=== PATIENT | male | born 1970 | race African-American/Black ===

== ENCOUNTER 2023-01-17 17:51 | Emergency (ER) | payer BC, SELFPAY ==
[2023-01-17 18:03] VITALS: BP 170/76; PULSE 78; RESP 17; TEMP 36.3; O2SAT 100
[2023-01-17 19:56] VITALS: BP 154/98; PULSE 63; RESP 18; TEMP 36.7; O2SAT 99
[2023-01-17] MEDS: DIPHENHYDRAMINE 1%/ZINC 0.1% CREAM 30 GM TUBE 1 APPLIC TOPICAL (20:33)
--- NOTE | 2023-01-17 20:56 | ED.GENADULT ---
HPI - General Adult General Chief complaint: Wound/Laceration Stated complaint: insect bite Time Seen by Provider: 01/17/23 19:49 History of Present Illness HPI narrative: Patient is a 52-year-old male who presents ER with an insect bite. He was at work when he felt something bite him on his right hernandes. He developed redness and swelling. It did not improve with ice packs. No chest pain or chest pressure. No difficulty breathing or swallowing. No additional swelling. Reports its intensely pruritic. Related Data Home Medications Medication Instructions Recorded Confirmed amlodipine 10 mg tablet 10 mg PO DAILY 05/18/22 06/21/22 losartan 100 mg tablet 100 mg PO DAILY 05/18/22 06/21/22 Allergies Allergy/AdvReac Type Severity Reaction Status Date / Time No Known Allergies Allergy Verified 01/17/23 20:05 Review of Systems Constitutional: Constitutional: Denies chills, Denies fatigue and Denies fever(s) Respiratory: Respiratory: Denies cough, Denies dyspnea and Denies wheezing Integumentary/Breasts: Skin/Breast: Reports pruritus, Reports erythema, Reports rash and Denies skin ulcer [facility] Past Medical History Medical History (Updated 01/17/23 @ 21:45 by Mateusz Gordon MD) Hypertension Social History Social History Smoking status: Never smoker Substance use type: does not use Living arrangements: with family Spiritual care concerns: No Exam Narrative: GENERAL: Well-appearing, orbitally obese, and in no acute distress. HEAD: Normocephalic, atraumatic. ENT: Mucous membranes moist. CHEST: Clear to auscultation. No respiratory distress. HEART: Regular rate and rhythm. Normal peripheral pulses. EXTREMITIES: Normal range of motion. Negative Homans' sign. SKIN: Warm, dry, swelling right anterior hernandes with erythema. Small defect of the skin where there is a bite/sting. NEURO: Alert and oriented x3. PSYCH: Normal mood and affect. Course Course Emergency Course: Patient given topical Benadryl cream for itching which has helped. Discussed discharging home with oral Benadryl and then topical hydrocortisone. Patient would like a work note Vital Signs Vital signs: Vital Signs Temperature 97.4 F L 01/17/23 18:03 Pulse Rate 78 01/17/23 18:03 Respiratory Rate 17 01/17/23 18:03 Blood Pressure 170/76 H 01/17/23 18:03 Pulse Oximetry 100 01/17/23 18:03 Oxygen Delivery Room Air 01/17/23 18:03 Temperature 98.0 F 01/17/23 19:56 Pulse Rate 62 01/17/23 21:05 Respiratory Rate 16 01/17/23 21:05 Blood Pressure 157/102 H 01/17/23 21:05 Pulse Oximetry 100 01/17/23 21:05 Oxygen Delivery Room Air 01/17/23 18:03 Medical Decision Making Vital Signs Vital Signs: Vital Signs Temperature 97.4 F L 01/17/23 18:03 Pulse Rate 78 01/17/23 18:03 Respiratory Rate 17 01/17/23 18:03 Blood Pressure 170/76 H 01/17/23 18:03 Pulse Oximetry 100 01/17/23 18:03 Oxygen Delivery Room Air 01/17/23 18:03 Temperature 98.0 F 01/17/23 19:56 Pulse Rate 62 01/17/23 21:05 Respiratory Rate 16 01/17/23 21:05 Blood Pressure 157/102 H 01/17/23 21:05 Pulse Oximetry 100 01/17/23 21:05 Oxygen Delivery Room Air 01/17/23 18:03 Discharge Plan Discharge Clinical Impression: Insect bite of leg Patient Disposition: Home, Self-Care Condition: Stable Instructions: Insect Bite or Sting (ED) Additional Instructions: You are having a reaction to a bite or sting. Take oral Benadryl and apply topical cortisone. Return the ER if you have fever over 100.4 ?F, you cannot breathe, cannot swallow, you have additional concerns. Prescriptions: No Action amlodipine 10 mg tablet 10 mg PO DAILY losartan 100 mg tablet 100 mg PO DAILY sodium,potassium,mag sulfates [Suprep Bowel Prep Kit] 17.5-3.13-1.6 gram recon soln See Rx Instructions PO .COMPLEX Qty: 354 0RF Rx Instructions: Take as directed. Follow-up/Referr
[2023-01-17 21:05] VITALS: BP 157/102; PULSE 62; RESP 16; O2SAT 100
== END 2023-01-17 21:06 | disposition home or self-care (01) ==
PROVIDERS: Emergency Provider Emergency Medicine; PCP Family Medicine
DX: S80.861A Insect bite (nonvenomous), right lower leg, initial encounter (principal); I10 Essential (primary) hypertension; W57.XXXA Bitten or stung by nonvenomous insect and other nonvenomous arthropods, initial encounter
CPT/HCPCS: 99282; A9270

== ENCOUNTER 2023-07-08 00:31 | Day surgery (SDC) | payer BC, SELFPAY ==
[2023-04-25 10:52] VITALS: BMI 42.7
[2023-05-31 09:56] VITALS: BMI 42.8
--- NOTE | 2023-07-04 09:46 | SUR.PREOP ---
Patient called regarding upcoming procedure. Reviewed preop instructions, new appointment times, and procedure prep.
--- NOTE | 2023-07-05 09:56 | SUR.PREOP ---
Patient called regarding upcoming procedure. Reviewed preop instructions, appointment times, and procedure prep.
[2023-07-08 06:20] VITALS: BP 181/96; PULSE 68; RESP 18; TEMP 36.2; O2SAT 100
[2023-07-08] MEDS: LACTATED RINGERS 1,000 ML 150 ML IV CONT (06:26)
--- NOTE | 2023-07-08 07:26 | WPDANESEPPF ---
Anes - Initial Pre Proc Eval Procedure: Operation Date: 07/08/23 07:30 Proposed Procedures p Colonoscopy - Jai Solitario MD Date/Time: 07/08/23 07:26 Surgeon: Jai Solitario MD Pre Op Diagnosis: personal hx of colon polyps Patient Data Age: 53 Gender: M Height: 1.78 m Weight: 123.4 kg Last Vital Signs Temp 97.1 F L 07/08/23 06:20 Pulse 68 07/08/23 06:20 Resp 18 07/08/23 06:20 BP 181/96 H 07/08/23 06:20 Pulse Ox 100 07/08/23 06:20 O2 Del Method Room Air 07/08/23 06:20 Allergies Allergy/AdvReac Type Severity Reaction Status Date / Time No Known Allergies Allergy Verified 07/08/23 06:19 Home Medications Medication Instructions Recorded Confirmed Type sodium,potassium,mag sulfates 17.5 See Rx Instructions PO .COMPLEX 04/18/22 04/25/23 Rx gram-3.13 gram-1.6 gram oral soln #354 mL (Suprep Bowel Prep Kit) amlodipine 10 mg tablet 10 mg PO DAILY 05/18/22 04/25/23 History losartan 100 mg tablet 100 mg PO DAILY 05/18/22 04/25/23 History sodium,potassium,mag sulfates 17.5 See Rx Instructions PO .COMPLEX 03/27/23 04/25/23 Rx gram-3.13 gram-1.6 gram oral soln #354 mL (Suprep Bowel Prep Kit) Patient hx anesthesia problems: none Family hx anesthesia problems: none Results Review: All pre-operative results and documents have been reviewed as part of the pre-operative evaluation. [facility] Past Medical History Medical History (Updated 01/18/23 @ 00:10 by Background Daemon) Hypertension Social History Social History Smoking status: Never smoker Alcohol intake: never Substance use: never Substance use type: does not use Living arrangements: with family Spiritual care concerns: No Anes - Eval Final PreProcedure Day of Procedure 07/08/23 07:26 Patient weight: morbidly obese Heart: regular rate and rhythm Lungs: clear to auscultation Airway: Mallampati scale class II Neurological: alert and oriented Last oral intake: >/= 8 hours ASA classification: III Emergent: no Anesthetic plan: proceed Anesthesia type and monitoring: general GIVS and standard monitoring Results Review: All pre-operative results and documents have been reviewed as part of the pre-operative evaluation. Informed Consent: The patient's anesthetic plan and its attendant risks and benefits were discussed with the patient/family/POA. Questions were solicited and answers provided to the satisfaction of the patient/family/POA.
--- NOTE | 2023-07-08 07:32 | PM.HPGS ---
History of Present Illness History of Present Illness Consent: Risks, benefits, and alternatives have been discussed and questions answered. Patient agrees to proceed with procedure. Chief complaint: personal hx of colon polyps Narrative: Ariel Jasso Sr. is a 53 year old male with colon polyps 5 years ago Review of Systems Constitutional: Constitutional: Denies headache(s) and Denies weakness Eyes: Eyes: Denies blurry vision ENT: Reports Normal hearing present, Denies headache(s) and Denies neck pain Cardiovascular: Cardiovascular: Denies chest pain and Denies dyspnea Respiratory: Respiratory: Denies dyspnea Gastrointestinal: Gastrointestinal: Reports no additional gastrointestinal complaints Genitourinary: Genitourinary: Denies dysuria Musculoskeletal: Musculoskeletal: Denies neck pain Integumentary/Breasts: Skin/Breast: Denies dry skin Neurologic: Reports Normal hearing present, Denies headache(s) and Denies weakness Psychiatric: Psychiatric: Denies anxiety Endocrine: Endocrine: Denies change in body appearance Hematologic/Lymphatic: Hematologic/Lymphatic: Denies easy bleeding Allergic/Immunologic: Allergic/Immunologic: Denies urticaria [facility] Past Medical History Medical History (Updated 07/08/23 @ 07:32 by Jai Solitario MD) Colon polyp Hypertension Social History Social History Smoking status: Never smoker Alcohol intake: never Substance use: never Substance use type: does not use Living arrangements: with family Spiritual care concerns: No Meds Home Medications and Allergies Home Medications Medication Instructions Recorded Confirmed Type sodium,potassium,mag sulfates 17.5 See Rx Instructions PO .COMPLEX 04/18/22 04/25/23 Rx gram-3.13 gram-1.6 gram oral soln #354 mL (Suprep Bowel Prep Kit) amlodipine 10 mg tablet 10 mg PO DAILY 05/18/22 04/25/23 History losartan 100 mg tablet 100 mg PO DAILY 05/18/22 04/25/23 History sodium,potassium,mag sulfates 17.5 See Rx Instructions PO .COMPLEX 03/27/23 04/25/23 Rx gram-3.13 gram-1.6 gram oral soln #354 mL (Suprep Bowel Prep Kit) Allergies Allergy/AdvReac Type Severity Reaction Status Date / Time No Known Allergies Allergy Verified 07/08/23 06:19 Vital Signs Vital Signs - 24 hr 07/08/23 06:20 Temperature 97.1 F L Pulse Rate 68 Respiratory Rate 18 Blood Pressure 181/96 H Pulse Oximetry 100 Oxygen Delivery Room Air Exam Const: General: comfortable and no acute distress HENMT: Face/Nose/Sinus: Normal nares present Eyes: General: appearance normal, both eyes and all related structures Neck: Neck: no JVD Resp: Auscultation: clear to auscultation bilaterally Cardio: Rate: regular rate Rhythm: regular rhythm GI: Inspection: non-distended GI Palp: Yes Soft to palpation Skin: General skin exam: normal color Neuro: General: gait normal Speech: normal speech Extrem: General: normal to inspection Psych: Mental Status: mental status grossly normal Assessment and Plan Assessment and plan (1) Colon polyp: Code(s): K63.5 - Polyp of colon Status: Acute Assessment and Plan: colonoscopy
[2023-07-08 08:19] VITALS: BP 185/119; PULSE 80; RESP 18; O2SAT 96
[2023-07-08 08:29] VITALS: BP 179/107; PULSE 73; RESP 18; O2SAT 96
[2023-07-08 08:39] VITALS: BP 185/103; PULSE 74; RESP 18; O2SAT 95
== END 2023-07-08 08:48 | disposition home or self-care (01) ==
PROVIDERS: PCP Family Medicine; Visit Provider Internal Medicine Gastroenterology
PROC: 0DJD8ZZ Inspection of Lower Intestinal Tract, Via Natural or Artificial Opening Endoscopic (ICD-10-PCS; CPT 45378; principal; 2023-07-08 07:30)
DX: Z12.11 Encounter for screening for malignant neoplasm of colon (principal); D12.0 Benign neoplasm of cecum; D12.4 Benign neoplasm of descending colon; K64.8 Other hemorrhoids; K57.30 Diverticulosis of large intestine without perforation or abscess without bleeding; I10 Essential (primary) hypertension; E66.01 Morbid (severe) obesity due to excess calories; Z68.39 Body mass index [BMI] 39.0-39.9, adult
CPT/HCPCS: 45385; 45381; 88305; J2704; J7120